=== PATIENT | female | born 1995 | race Caucasian/White ===

== ENCOUNTER 2016-11-03 17:19 | Emergency (ER) | payer MEDICAID ==
[~2016-11-03] VITALS: Ht 160 cm; Wt 68.0 kg
[2016-11-03 17:30] VITALS: BP 126/71
== END 2016-11-03 18:09 | disposition home or self-care (01) ==
LOC: ED 17:19
DX: O26.892 Other specified pregnancy related conditions, second trimester (principal); J02.9 Acute pharyngitis, unspecified; Z3A.18 18 weeks gestation of pregnancy